=== PATIENT | male | born 1955 | race Caucasian/White ===

== ENCOUNTER 2018-04-17 16:22 | Inpatient (IN) | payer OTHER ==
[~2018-04-17] VITALS: Ht 180.3 cm; Wt 90.2 kg
[2018-04-17 16:59] LABS: APPEARANCE SL.HAZY ((CLEAR)); BILIRUBIN NEGATIVE; BLOOD NEGATIVE; COLOR YELLOW ((YELLOW)); GLUCOSE (STRIP) NEGATIVE; KETONES 20; LEUKOCYTES NEGATIVE; NITRITE NEGATIVE; PROTEIN (STRIP) 30; UROBILINOGEN 0.2 MG/DL (0.2-1.0)
[2018-04-17 17:04] LABS: ALBUMIN 4.1 g/dL (3.2-4.8); CHLORIDE 101 mEq/L (99-109); POTASSIUM 4.1 mEq/L (3.7-5.4); SODIUM 137 mEq/L (136-147)
[2018-04-17 17:05] LABS: BACTERIA NONE SEEN /HPF; EPITHELIAL CELLS RARE /HPF; HYALINE CASTS 0-5 /LPF; MUCUS TRACE /LPF; UCUL ADDED? NO; WHITE BLOOD CELLS 0-5 /HPF (0-5)
[2018-04-17 17:07] LABS: GLUCOSE 117 mg/dL (70-99)
[2018-04-17 17:08] LABS: TOTAL BILIRUBIN 0.7 mg/dL (0.0-1.0)
[2018-04-17 17:10] LABS: ALKALINE PHOSPHATASE 85 IU/L (3-129); CREATININE 0.9 mg/dL (0.6-1.3); GFR ESTIMATE (CALCULATED) > 59 mL/min/ (58.99-99999)
[2018-04-17 17:11] LABS: UREA NITROGEN (BUN) 14 mg/dL (9-23)
[2018-04-17 17:12] LABS: AST (GOT) 25 IU/L (2-34)
[2018-04-17 17:13] LABS: ALT (GPT) 34 IU/L (3-49)
[2018-04-17 17:14] LABS: LIPASE 13 U/L (1.0-51.0)
[2018-04-17 17:29] LABS: HEMATOCRIT 44.8 % (38.0-50.0); HEMOGLOBIN 15.3 G/DL (12.5-16.6); MCH 30.5 PG (29.0-34.0); MCHC 34.2 G/DL (30.0-36.0); MCV 89.2 FL (86-99); RBC DIS.WIDTH-CV 13.1 % (11.8-14.6); RBC DIS.WIDTH-SD 42.7 % (39-53); RED BLOOD COUNT 5.02 M/uL (4.00-5.50); WHITE BLOOD COUNT 8.1 K/uL (4.1-10.2)
[2018-04-17 17:34] LABS: PLAT.SUFFICIENCY ADEQUATE; PLATELET COUNT 290 K/uL (156-360)
[2018-04-17 22:40] LABS: MAGNESIUM 2.4 mg/dL (1.3-2.7)
[2018-04-17 22:45] LABS: PHOSPHORUS 2.6 mg/dL (2.5-4.9)
[2018-04-17 22:52] LABS: TROP-I INTERPRETATION NEGATIVE; TROPONIN-I < 0.01 ng/mL (0.0-0.30)
[2018-04-17 23:06] LABS: AMPHETAMINE NEGATIVE (500 ng/mL); BARBITURATES NEGATIVE (200 ng/mL); BENZODIAZEPINES NEGATIVE (150 ng/mL); BUPRENORPHINE NEGATIVE (10 ng/mL); COCAINE NEGATIVE (150 ng/mL); METHADONE NEGATIVE (200 ng/mL); METHAMPHETAMINE NEGATIVE (500 ng/mL); OPIATES (MORPHINE) NEGATIVE (100 ng/mL); OXYCODONE NEGATIVE (100 ng/mL); PHENCYCLIDINE NEGATIVE (25 ng/mL); PROPOXYPHENE NEGATIVE (300 ng/mL); THC CANNABINOIDS PRESUMPTIVE POSITIVE (50 ng/mL); TRICYCLIC ANTIDEPRESSANTS NEGATIVE (300 ng/mL)
[2018-04-18] VITALS (22 sets, daily range): BP systolic 86–152; BP diastolic 50–89
[2018-04-18 00:07] LABS: C-REACTIVE PROTEIN 4.9 MG/L (0-10)
[2018-04-18 00:08] LABS: HDL CHOLESTEROL 28 MG/DL (Desirable>=40); LDL CHOLESTEROL 151 mg/dL (Desirable<100); NON-HDL CHOLESTEROL 173 mg/dL (Desirable<160); TOTAL CHOLESTEROL 201 mg/dL (Desirable<200); TRIGLYCERIDES 110 MG/DL (Normal: <150)
[2018-04-18 02:02] LABS: COMMENTS - BLOOD GASES A+C+; DEVICE VENT; FI02 100 %; MODE ACVC; SITE LR
[2018-04-18 02:03] LABS: MECHANICAL RATE 12 resp/min; O2 SATURATION (CALCULATED) 97.1 % (95-99); PCO2 36 mm Hg (35-45); PEEP 5 CM/H20; PO2 379 mm Hg (80-100); TIDAL VOLUME 500 ML; TOTAL RESP RATE 17 resp/min; pH 7.41 (7.35-7.45)
[2018-04-18 02:04] LABS: BASE EXCESS -1.4 mEq/L (-3 to +3); BICARBONATE 22.8 mEq/L (22-26); CARBOXY HGB 0.7 % (0-5); METHEMOGLOBIN 1.3 % (0-1.5)
[2018-04-18 06:03] LABS: HEMATOCRIT 36.9 % (38.0-50.0); MCH 30.5 PG (29.0-34.0); MCHC 34.1 G/DL (30.0-36.0); MCV 89.3 FL (86-99); PLATELET COUNT 252 K/uL (156-360); RBC DIS.WIDTH-CV 13.2 % (11.8-14.6); RBC DIS.WIDTH-SD 43.2 % (39-53); RED BLOOD COUNT 4.13 M/uL (4.00-5.50); WHITE BLOOD COUNT 12.3 K/uL (4.1-10.2)
[2018-04-18 06:04] LABS: HEMOGLOBIN 12.6 G/DL (12.5-16.6)
[2018-04-18 06:22] LABS: ALBUMIN 2.9 G/DL (3.2-4.8); ALKALINE PHOSPHATASE 52 IU/L (3-129); ALT (GPT) 22 IU/L (3-49); AST (GOT) 16 IU/L (2-34); CHLORIDE 108 MEQ/L (99-109); CREATININE 0.7 MG/DL (0.6-1.3); GFR ESTIMATE (CALCULATED) > 59 mL/min/ (58.99-99999); GLUCOSE 147 mg/dL (70-99); PHOSPHORUS 3.7 mg/dL (2.5-4.9); POTASSIUM 3.5 MEQ/L (3.7-5.4); SODIUM 139 MEQ/L (136-147); TOTAL BILIRUBIN 0.6 MG/DL (0.0-1.0); TOTAL PROTEIN 5.5 G/DL (6.4-8.3); UREA NITROGEN (BUN) 11 mg/dL (9-23)
[2018-04-18 09:40] LABS: INTER. NORMALIZED RATIO 1.1
[2018-04-18 09:43] LABS: PTT 23.6 SEC (25-37)
[2018-04-18 10:14] LABS: HEMOGLOBIN A1c (GLYCOHEMOGLOB) 5.6 % (Below 5.7)
[2018-04-18 10:28] LABS: HIV-1/2 AB/AG COMBO Nonreactive
[2018-04-18 13:22] LABS: LIPASE 13 U/L (1.0-51.0)
[2018-04-18 14:38] LABS: THYROTROPIN (TSH) 0.39 MIU/L (0.4-5.5)
[2018-04-18 15:44] LABS: GLUCOSE, CSF 68 mg/dL (40-80)
[2018-04-18 16:02] LABS: APPEARANCE CLEAR/COLORLESS; CSF TUBE NUMBER TUBE #4; RED CELL COUNT 1 /MM^3 (0-1); WHITE CELL COUNT 16 /MM^3 (0-5)
[2018-04-18 16:14] LABS: CSF EOSINOPHILS 0 % (0-25); MONONUCLEAR WBC'S 97 % (50-90); POLYNUCLEAR WBC'S 3 % (0-3)
[2018-04-18 16:16] LABS: CSF PROTEIN 77 mg/dL (15-45)
[2018-04-19] VITALS (22 sets, daily range): BP systolic 105–150; BP diastolic 60–86
[2018-04-19 06:08] LABS: BASOPHIL (%) 0.8 % (0-1); BASOPHIL COUNT 0.1 K/uL (0-0.1); EOSINOPHIL (%) 1.1 % (0-5); EOSINOPHIL COUNT 0.2 K/uL (0-0.3); HEMATOCRIT 37.5 % (38.0-50.0); HEMOGLOBIN 12.5 G/DL (12.5-16.6); IMMATURE GRANULOCYTE (%) 0.4 % (0.0-0.7); LYMPHOCYTE (%) 19.4 % (15-42); LYMPHOCYTE COUNT 2.7 K/uL (1.0-2.8); MCH 29.6 PG (29.0-34.0); MCHC 33.3 G/DL (30.0-36.0); MCV 88.9 FL (86-99); MONOCYTE (%) 12.1 % (3-12); MONOCYTE COUNT 1.7 K/uL (0-0.8); NEUTROPHIL (%) 66.2 % (45-76); NEUTROPHIL COUNT 9.4 K/uL (1.8-6.4); PLATELET COUNT 299 K/uL (156-360); RBC DIS.WIDTH-CV 13.3 % (11.8-14.6); RBC DIS.WIDTH-SD 43.6 % (39-53); RED BLOOD COUNT 4.22 M/uL (4.00-5.50); WHITE BLOOD COUNT 14.2 K/uL (4.1-10.2)
[2018-04-19 06:34] LABS: ALKALINE PHOSPHATASE 57 IU/L (3-129); ALT (GPT) 16 IU/L (3-49); AST (GOT) 14 IU/L (2-34); CHLORIDE 107 MEQ/L (99-109); CREATININE 0.8 MG/DL (0.6-1.3); GFR ESTIMATE (CALCULATED) > 59 mL/min/ (58.99-99999); MAGNESIUM 1.9 mg/dl (1.3-2.7); PHOSPHORUS 2.5 mg/dL (2.5-4.9); POTASSIUM 3.3 MEQ/L (3.7-5.4); SODIUM 139 MEQ/L (136-147); TOTAL BILIRUBIN 0.7 MG/DL (0.0-1.0); TOTAL PROTEIN 5.4 G/DL (6.4-8.3); UREA NITROGEN (BUN) 11 mg/dL (9-23)
[2018-04-19 06:36] LABS: GLUCOSE 104 mg/dL (70-99)
[2018-04-19 21:05] LABS: HSV CSF Spec Source CSF (())
[2018-04-20] VITALS (22 sets, daily range): BP systolic 105–158; BP diastolic 51–84
[2018-04-20 08:57] LABS: BASOPHIL (%) 1.5 % (0-1); BASOPHIL COUNT 0.2 K/uL (0-0.1); EOSINOPHIL COUNT 0.7 K/uL (0-0.3); HEMATOCRIT 38.3 % (38.0-50.0); IMMATURE GRANULOCYTE (%) 0.4 % (0.0-0.7); LYMPHOCYTE (%) 20.8 % (15-42); LYMPHOCYTE COUNT 2.8 K/uL (1.0-2.8); MCH 29.9 PG (29.0-34.0); MCHC 33.9 G/DL (30.0-36.0); MONOCYTE (%) 16.2 % (3-12); MONOCYTE COUNT 2.2 K/uL (0-0.8); NEUTROPHIL (%) 56.1 % (45-76); NEUTROPHIL COUNT 7.6 K/uL (1.8-6.4); PLATELET COUNT 330 K/uL (156-360); RBC DIS.WIDTH-CV 12.9 % (11.8-14.6); RBC DIS.WIDTH-SD 41.8 % (39-53); RED BLOOD COUNT 4.35 M/uL (4.00-5.50); WHITE BLOOD COUNT 13.5 K/uL (4.1-10.2)
[2018-04-20 09:21] LABS: ALBUMIN 3.4 G/DL (3.2-4.8); ALKALINE PHOSPHATASE 68 IU/L (3-129); ALT (GPT) 14 IU/L (3-49); AST (GOT) 16 IU/L (2-34); CHLORIDE 102 MEQ/L (99-109); CREATININE 0.6 MG/DL (0.6-1.3); GFR ESTIMATE (CALCULATED) > 59 mL/min/ (58.99-99999); GLUCOSE 89 mg/dL (70-99); MAGNESIUM 1.9 mg/dl (1.3-2.7); PHOSPHORUS 2.4 mg/dL (2.5-4.9); POTASSIUM 3.3 MEQ/L (3.7-5.4); SODIUM 138 MEQ/L (136-147); TOTAL BILIRUBIN 0.8 MG/DL (0.0-1.0); TOTAL PROTEIN 6.1 G/DL (6.4-8.3); UREA NITROGEN (BUN) 7 mg/dL (9-23)
[2018-04-21] VITALS (18 sets, daily range): BP systolic 114–187; BP diastolic 60–116
[2018-04-21 05:52] LABS: BASOPHIL (%) 1.5 % (0-1); BASOPHIL COUNT 0.2 K/uL (0-0.1); EOSINOPHIL (%) 5.5 % (0-5); EOSINOPHIL COUNT 0.7 K/uL (0-0.3); HEMATOCRIT 40.3 % (38.0-50.0); HEMOGLOBIN 13.6 G/DL (12.5-16.6); IMMATURE GRANULOCYTE (%) 0.5 % (0.0-0.7); LYMPHOCYTE (%) 19.5 % (15-42); LYMPHOCYTE COUNT 2.4 K/uL (1.0-2.8); MCH 29.6 PG (29.0-34.0); MCHC 33.7 G/DL (30.0-36.0); MCV 87.8 FL (86-99); MONOCYTE (%) 16.9 % (3-12); MONOCYTE COUNT 2.1 K/uL (0-0.8); NEUTROPHIL (%) 56.1 % (45-76); NEUTROPHIL COUNT 6.9 K/uL (1.8-6.4); PLATELET COUNT 374 K/uL (156-360); RBC DIS.WIDTH-CV 12.8 % (11.8-14.6); RBC DIS.WIDTH-SD 41.4 % (39-53); RED BLOOD COUNT 4.59 M/uL (4.00-5.50); WHITE BLOOD COUNT 12.3 K/uL (4.1-10.2)
[2018-04-21 06:15] LABS: ALBUMIN 3.1 G/DL (3.2-4.8); ALKALINE PHOSPHATASE 59 IU/L (3-129); ALT (GPT) 14 IU/L (3-49); AST (GOT) 14 IU/L (2-34); CHLORIDE 102 MEQ/L (99-109); CREATININE 0.8 MG/DL (0.6-1.3); GFR ESTIMATE (CALCULATED) > 59 mL/min/ (58.99-99999); GLUCOSE 82 mg/dL (70-99); POTASSIUM 3.6 MEQ/L (3.7-5.4); SODIUM 140 MEQ/L (136-147); TOTAL PROTEIN 5.8 G/DL (6.4-8.3); UREA NITROGEN (BUN) 13 mg/dL (9-23)
[2018-04-21 06:19] LABS: PHOSPHORUS 3.5 mg/dL (2.5-4.9); TOTAL BILIRUBIN 0.6 MG/DL (0.0-1.0)
[2018-04-22 00:53] VITALS: BP 165/89
[2018-04-22 03:54] VITALS: BP 162/94
[2018-04-22 05:52] LABS: BASOPHIL (%) 1.7 % (0-1); BASOPHIL COUNT 0.2 K/uL (0-0.1); EOSINOPHIL COUNT 0.5 K/uL (0-0.3); HEMATOCRIT 37.7 % (38.0-50.0); HEMOGLOBIN 13.4 G/DL (12.5-16.6); IMMATURE GRANULOCYTE (%) 0.3 % (0.0-0.7); LYMPHOCYTE (%) 21.3 % (15-42); LYMPHOCYTE COUNT 2.5 K/uL (1.0-2.8); MCH 30.9 PG (29.0-34.0); MCHC 35.5 G/DL (30.0-36.0); MCV 87.1 FL (86-99); MONOCYTE (%) 19.2 % (3-12); MONOCYTE COUNT 2.3 K/uL (0-0.8); NEUTROPHIL (%) 53.5 % (45-76); NEUTROPHIL COUNT 6.3 K/uL (1.8-6.4); PLATELET COUNT 401 K/uL (156-360); RBC DIS.WIDTH-CV 12.7 % (11.8-14.6); RBC DIS.WIDTH-SD 40.6 % (39-53); RED BLOOD COUNT 4.33 M/uL (4.00-5.50); WHITE BLOOD COUNT 11.8 K/uL (4.1-10.2)
[2018-04-22 06:18] LABS: ALBUMIN 3.3 G/DL (3.2-4.8); ALKALINE PHOSPHATASE 59 IU/L (3-129); ALT (GPT) 18 IU/L (3-49); AST (GOT) 18 IU/L (2-34); CHLORIDE 99 MEQ/L (99-109); CREATININE 0.8 MG/DL (0.6-1.3); GFR ESTIMATE (CALCULATED) > 59 mL/min/ (58.99-99999); MAGNESIUM 1.8 mg/dl (1.3-2.7); PHOSPHORUS 2.6 mg/dL (2.5-4.9); POTASSIUM 3.3 MEQ/L (3.7-5.4); SODIUM 138 MEQ/L (136-147); TOTAL BILIRUBIN 0.6 MG/DL (0.0-1.0); TOTAL PROTEIN 6.3 G/DL (6.4-8.3); UREA NITROGEN (BUN) 9 mg/dL (9-23)
[2018-04-22 06:19] LABS: GLUCOSE 112 mg/dL (70-99)
[2018-04-22 08:14] VITALS: BP 177/92
[2018-04-22 12:04] VITALS: BP 144/92
[2018-04-22 12:58] LABS: LYME DISEASE SEROLOGY SCREEN NEGATIVE (NEGATIVE)
[2018-04-22 15:45] LABS: C DIFF TOXIN NEGATIVE (NEGATIVE)
[2018-04-22] MEDS ORDERED: DOXYCYCLINE HY100 M3 PO (16:12)
[2018-04-22] MEDS ORDERED: LEVETIRACETAM250 MG PO (16:13)
[2018-04-22] MEDS ORDERED: LABETALOL HCL100 MG PO (16:13)
[2018-04-22] MEDS ORDERED: ASPIRIN EC325 MG PO (16:13)
[2018-04-22 16:21] VITALS: BP 152/95
== END 2018-04-22 19:44 | disposition home or self-care (01) | DRG 100 ==
LOC: EME 16:22 → EDOF 20:59 → ENRESERV 21:03 → EDOF 22:22 → ENRESERV 22:42 → EDOF 22:42 → 4WEST 22:42 → EDOF 22:50 → 4WEST 23:37 → EDOF 23:58 → 4WEST 04-18 00:33 → CANRESERV 04-21 14:05 → ENRESERV 04-21 14:05 → 5SOUTH 04-21 16:15
PROVIDERS: Emergency Medicine; Hospitalist; Internal Medicine; Physician Assistant
PROC: 02HV33Z Insertion of Infusion Device into Superior Vena Cava, Percutaneous Approach (ICD-10-PCS; principal; 2018-04-18)
PROC: 009U3ZX Drainage of Spinal Canal, Percutaneous Approach, Diagnostic (ICD-10-PCS; principal; 2018-04-18)
PROC: 0BH17EZ Insertion of Endotracheal Airway into Trachea, Via Natural or Artificial Opening (ICD-10-PCS; principal; 2018-04-18)
PROC: 5A1935Z Respiratory Ventilation, Less than 24 Consecutive Hours (ICD-10-PCS; principal; 2018-04-18)
DX: G40.901 Epilepsy, unspecified, not intractable, with status epilepticus (principal); J96.00 Acute respiratory failure, unspecified whether with hypoxia or hypercapnia; A08.4 Viral intestinal infection, unspecified; S01.512A Laceration without foreign body of oral cavity, initial encounter; F12.90 Cannabis use, unspecified, uncomplicated; I73.9 Peripheral vascular disease, unspecified; R32 Unspecified urinary incontinence; Z90.81 Acquired absence of spleen; Z79.899 Other long term (current) drug therapy; K27.9 Peptic ulcer, site unspecified, unspecified as acute or chronic, without hemorrhage or perforation; J98.11 Atelectasis; R19.7 Diarrhea, unspecified
CPT/HCPCS: 36600; 70450; 70553; 71045; 71046; 74177; 80047; 80053; 80061; 80185; 80202; 81003; 82945; 82948; 83036; 83605; 83690; 83735; 84100; 84157; 84439; 84443; 84484; 84999; 85025; 85027; 85610; 85651; 85730; 86140; 86617 90; 86618; 86618 90; 87040; 87070; 87205; 87389; 87493; 87502; 87529 90; 87641; 87899; 89051; 90832; 93005; 93306; 93882; 94002; 94003; 94760; 95819; 99281; 99285; C1751; J0133; J0290; J0696; J1165; J1630; J1650; J1953; J2060; J2405; J2597; J2704; J3010; J3370; J7030; J7050; S0028